=== PATIENT | female | born 1965 | race Caucasian/White ===

== ENCOUNTER 2017-01-03 20:42 | Emergency (ER) | payer BC, MEDICARE ==
[2017-01-03 22:25] LABS: RED BLOOD COUNT 4.92 M/UL (4.00-5.10); WHITE BLOOD COUNT 12.7 K/UL (4.5-11.0)
[2017-01-03 22:57] LABS: BUN/CREATININE RATIO 20 (0-10)
[2017-01-30] MEDS ORDERED: PROBIOTIC1 EAC1 PO (06:54)
[2017-01-30] MEDS ORDERED: ARMOUR THYROID60 MG PO (06:54)
[2017-01-30] MEDS ORDERED: ACIDOPHILUS1 EACH PO (06:55)
[2017-01-30] MEDS ORDERED: ARMOUR THYROID15 MG PO (06:55)
[2017-01-30] MEDS ORDERED: TRAZODONE HCL150 MG PO (06:55)
[2017-01-30] MEDS ORDERED: ADDERALL 20 MG20 MG PO (06:56)
[2017-01-30] MEDS ORDERED: OXYCONTIN20 MG PO (06:56)
[2017-01-30] MEDS ORDERED: PHENERGAN 25 MG25 M1 PO (06:58)
[2017-01-30] MEDS ORDERED: MAXALT10 MG PO (06:58)
[2017-01-30] MEDS ORDERED: MIRALAX17 GM PO (06:59)
[2017-01-30] MEDS ORDERED: [UNRECOGNIZED DRUG - OTHER] PO (07:01)
[2017-01-30] MEDS ORDERED: BLACK SEED (07:02)
[2017-01-30] MEDS ORDERED: [UNRECOGNIZED DRUG - OTHER] PO (07:02)
[2017-01-30] MEDS ORDERED: [UNRECOGNIZED DRUG - OTHER] (07:04)
[2017-02-06] MEDS ORDERED: ANUSOL HC SUPP1 SUPP PR (09:16)
== END 2017-01-04 01:00 | disposition home or self-care (01) ==
LOC: ER1 20:42
PROVIDERS: Family Medicine
DX: K52.9 Noninfective gastroenteritis and colitis, unspecified (principal)
CPT/HCPCS: 36415; 80053; 81001; 82150; 82272; 83690; 85025; 99284; J7050; Q9962

== ENCOUNTER → 2017-01-11 | Outpatient (CLI) | payer BC, MEDICARE ==
[~2017-01-11] MED LIST: ACIDOPHILUS1 EACH PO; ADDERALL 20 MG20 MG PO; ANUSOL HC SUPP1 SUPP PR; ARMOUR THYROID15 MG PO; ARMOUR THYROID60 MG PO; BLACK SEED; MAXALT10 MG PO; MIRALAX17 GM PO; OXYCONTIN20 MG PO; PHENERGAN 25 MG25 M1 PO; PROBIOTIC1 EAC1 PO; TRAZODONE HCL150 MG PO; [UNRECOGNIZED DRUG - OTHER]; [UNRECOGNIZED DRUG - OTHER] PO; [UNRECOGNIZED DRUG - OTHER] PO
== END ==
LOC: LBRF 15:12
DX: R19.7 Diarrhea, unspecified (principal)
CPT/HCPCS: 87045; 87046; 89055

== ENCOUNTER → 2017-01-30 | Day surgery (SDC) | payer BC, MEDICARE | END | disposition home or self-care (01) | LOC: OR 06:25 | PROVIDERS: Internal Medicine Gastroenterology | PROC: 0DB68ZX Excision of Stomach, Via Natural or Artificial Opening Endoscopic, Diagnostic (ICD-10-PCS; principal; 2017-01-30 08:00) | DX: K29.50 Unspecified chronic gastritis without bleeding (principal); K59.03 Drug induced constipation; T40.605A Adverse effect of unspecified narcotics, initial encounter; E06.3 Autoimmune thyroiditis; M79.7 Fibromyalgia; R19.5 Other fecal abnormalities; E66.3 Overweight; Z88.6 Allergy status to analgesic agent; Z86.69 Personal history of other diseases of the nervous system and sense organs; Z79.899 Other long term (current) drug therapy; Z90.710 Acquired absence of both cervix and uterus; Z68.27 Body mass index [BMI] 27.0-27.9, adult | CPT/HCPCS: J2250; J3010; J7030 ==